=== PATIENT | male | born 1950 | race Caucasian/White ===

== ENCOUNTER 2017-01-02 07:09 | Day surgery (SDC) | payer BC ==
[~2017-01-02] VITALS: Ht 165.1 cm; Wt 75.8 kg
[2017-01-02] MEDS ORDERED: LIDOCAINE 100 MG SYRINGE ONE (07:15)
[2017-01-02] MEDS ORDERED: ATROPINE 1 MG INJ ONE (07:15)
[2017-01-02] MEDS ORDERED: PROPOFOL 40 ML ONE (07:15)
[2017-01-02 07:50] VITALS: Ht 165.1 cm; Wt 75.8 kg
[2017-01-02] MEDS ORDERED: BENAZEPRIL DAILY (08:05)
[2017-01-02] MEDS ORDERED: SIMVASTATIN DAILY (08:05)
[2017-01-02] MEDS ORDERED: ASPIRIN (08:05)
[2017-01-02 08:12] VITALS: BP 172/81; PULSE 86; RESP 18
[2017-01-02 08:38] VITALS: BP 105/58; PULSE 72; RESP 11
--- NOTE | 2017-01-02 08:42 | OPPN ---
Date/Time of Note Date/Time of Note DATE: 01/02/17 TIME: 08:40 Operative Report Preoperative Diagnosis Abdominal pain and change in bowel habit Postoperative Diagnosis Hiatal hernia Gastroesophageal reflux disease Gastritis with erosions Internal hemorrhoids No colon neoplasm is identified Operation/Procedure Performed Esophagogastroduodenoscopy and biopsy Colonoscopy Surgeon see signature line assistant research scientist None Anesthesia: MAC Estimated blood loss: none Transfusion Required none Specimen Gastric mucosal biopsy Grafts/Implants none Complications none REENA EVANS MD Jan 02, 2017 08:42
[2017-01-02 09:05] VITALS: BP 154/67; PULSE 80; RESP 18
--- NOTE | 2017-01-02 09:57 | GILP ---
DATE OF PROCEDURE: 01/02/2017 NAME OF PROCEDURES: 1. Esophagogastroduodenoscopy and biopsy. 2. Colonoscopy. SURGEON: Reena Garcia MD PREOPERATIVE DIAGNOSES: 1. Abdominal pain. 2. Change in bowel habit. POSTOPERATIVE DIAGNOSES: 1. Hiatal hernia. 2. Gastroesophageal reflux disease. 3. Gastritis with erosions. 4. Gastric mucosal biopsies were taken for Helicobacter pylori test. 5. Colonoscopy all the way to the cecum. 6. Internal hemorrhoids. 7. No colon neoplasm was identified. INDICATION FOR THE PROCEDURE: The patient is a 66-year-old male patient who had upper abdominal butch n, not responding to therapy. Patient also had change in the bowel habit with worsening constipatio n. The patient was scheduled for endoscopy and colonoscopy for further evaluation. The procedures and possible complications were well explained to the patient, he understood and cons ented to the procedure. DESCRIPTION OF PROCEDURE: Under the influence of anesthesia, the gastroscope was carefully introduc ed into the esophagus under direct vision, it was advanced to the stomach and through the pylorus in to the duodenal bulb and descending duodenum. FINDINGS: ESOPHAGUS: The patient had hiatal hernia and gastroesophageal reflux disease. STOMACH: He had gastritis with erosions. Gastric mucosal biopsies were taken for H. pylori test. DUODENUM: Normal. The colonoscope was carefully introduced in the rectum and under direct vision, it was advanced all the way to the cecum. FINDINGS: The patient had internal hemorrhoids. No colon neoplasm was identified. The patient tolerated the procedures very well and there was no complication from the procedures. A t the end of the procedures, he was awake with stable vital signs and he was discharged home to the care of his family. IMPRESSION: Please see postoperative diagnoses. PLAN: 1. Nexium 24 hours p.o. in the a.m. 2. MiraLax 17 grams dissolved in a glass of water p.o. daily. 3. Await H. pylori test report. 4. Next screening colonoscopy in 10 years. Dictated By: REENA CHARLES/MARY Conf#: [id number] DID#: [id number]
== END 2017-01-02 11:14 | disposition home or self-care (01) ==
LOC: GIL 07:09
PROVIDERS: ATTEND Internal Medicine Gastroenterology
DX: R19.4 Change in bowel habit (principal); K44.9 Diaphragmatic hernia without obstruction or gangrene; K21.9 Gastro-esophageal reflux disease without esophagitis; K29.60 Other gastritis without bleeding; K64.8 Other hemorrhoids; I10 Essential (primary) hypertension; E78.5 Hyperlipidemia, unspecified
CPT/HCPCS: 43239; 45378; 87081; J0461; J2001; Z7610

== ENCOUNTER 2017-03-15 08:11 | Day surgery (SDC) | END 2017-03-15 13:14 | disposition home or self-care (01) ==